=== PATIENT | male | born 1980 | race Caucasian/White ===

== ENCOUNTER 2018-06-26 06:01 | Emergency (ER) | payer OTHER ==
[2018-06-26 06:14] VITALS: BP 143/98; PULSE 93; TEMP 97.9; BMI 21.2
[2018-06-26] MEDS ORDERED: IBUPROFEN 600 MG TABLET (FP) PO ONE (06:25)
[2018-06-26] MEDS ORDERED: KETOROLAC TROMETHAMINE 60 MG/2 ML VIAL IM ONE (06:27)
[2018-06-26] MEDS ORDERED: DEXAMETHASONE 4 MG TABLET (FP) PO ONE (06:28)
--- NOTE | 2018-06-26 06:31 | PDOC ---
Attending Attestation - Resident Resident Name: Gege Swartz - ED Attending Attestation I have performed the following: I have examined & evaluated the patient, The case was reviewed & discussed with the resident, I agree w/resident's findings & plan - HPI HPI: 06/26/18 06:28 Healthy 37-year-old male presents with progressive left-sided throat pain since yesterday. Awoke this morning with more severe pain, painful swallowing but tolerating secretions and with normal voice and no difficulty breathing. No fevers or chills. No sick contacts, no recent dental work. Also complaining of left sinus congestion with nasal discharge, no facial swelling. - Physicial Exam PE: 06/26/18 06:29 Afebrile, mild distress secondary to throat pain No facial swelling but some tenderness over the left maxillary sinus TMs clear, neck supple Some submandibular lymphadenopathy on the left, bilateral tonsillar enlargement , left worse than right. Uvula is midline with patent airway, no stridor. No focal plaques or exudates. Lungs are clear, dentition is intact - Medical Decision Making 06/26/18 06:30 37-year-old male with sinusitis and tonsillitis, no acute airway issues. NSAIDs and steroids for pain and swelling Antibiotics and ENT referral Understands return criteria
[2018-06-26] MEDS ORDERED: KETOROLAC TROMETHAMINE 60 MG/2 ML VIAL ONE (06:33)
--- NOTE | 2018-06-26 06:43 | PDOC ---
History of Present Illness - General History Source: Patient Exam Limitations: No Limitations - History of Present Illness Initial Comments: 06/26/18 06:36 Pt is a 37yo m with no significant PMH presenting to ED with complaints of throat pain that started suddenly this AM. Pt said he felt "a tickling" last night but now he has severe pain in his throat that is preventing him from swallowing. Pain radiates down the front of his neck and up to the L side of his head. He also has L sided ear pain and nasal congestion. He denies fevers, chills, SOB, cough, recent illnesses, n/v/d, sick contacts. He took Motrin 250mg but it didn't help. He is still able to swallow, it is just painful. No recent dental work. PMH: none PSH: R hand surgery Meds: none Allergies: none Social: smokes 1ppd x15y, drinks 2 beers daily, daily marijuana use. <Gege Swartz - Last Filed: 06/26/18 07:03> <Monroe Ding - Last Filed: 06/26/18 07:40> - General Chief Complaint: Dysphagia Stated Complaint: DIFFICULTY SWALLOWING Time Seen by Provider: 06/26/18 06:04 Past History - Past Medical History COPD: No - Suicide/Smoking/Psychosocial Hx Smoking History: Current every day smoker Have you smoked in the past 12 months: Yes Number of Cigarettes Smoked Daily: 20 Cigars Per Day: 10 Information on smoking cessation initiated: No Hx Alcohol Use: Yes Drug/Substance Use Hx: No Substance Use Type: None <Gege Swartz - Last Filed: 06/26/18 07:03> <Monroe Ding - Last Filed: 06/26/18 07:40> - Past Medical History Allergies/Adverse Reactions: Allergies Allergy/AdvReac Type Severity Reaction Status Date / Time No Known Allergies Allergy Verified 06/26/18 06:14 Home Medications: Ambulatory Orders Albuterol Sulfate Inhaler - [Ventolin HFA Inhaler -] 2 inh PO Q4H PRN #1 inh 09/07 Azithromycin [Zithromax 250mg Tablets -] 250 mg PO DAILY 5 Days #6 tablet Benzonatate [Tessalon Pearls -] 100 mg PO TID #21 capsule 06/11/18 Amoxicillin - [Amoxicillin 500mg Capsule -] 500 mg PO DAILY 10 Days #20 capsule 06/26/18 Review of Systems - Review of Systems Constitutional: No: Chills, Fever, Loss of Appetite HEENTM: Yes: Ear Pain (L ear pain), Nose Congestion, Throat Pain, Difficulty Swallowing. No: Eye Pain, Double Vision, Ear Discharge Respiratory: No: Cough, Shortness of Breath Cardiac (ROS): No: Chest Pain, Lightheadedness, Palpitations ABD/GI: Yes: Difficulty Swallowing. No: Blood Streaked Bowels, Constipated, Diarrhea, Nausea, Vomiting, Indigestion, Abdominal cramping : No: Burning, Dysuria Musculoskeletal: Yes: Neck Pain (L sided neck pain). No: Back Pain, Muscle Pain , Muscle Weakness <Gege Swartz - Last Filed: 06/26/18 07:03> *Physical Exam - Vital Signs Last Vital Signs Temp Pulse Resp BP Pulse Ox 97.9 F 93 H 20 143/98 99 06/26/18 06:06/26/18 06:06/26/18 06:09 06/26/18 06:09 06/26/18 06:09 - Physical Exam General Appearance: Yes: Nourished, Appropriately Dressed, Mild Distress HEENT: positive: EOMI, KATE, Normal Voice, TMs Normal, Pharyngeal Erythema, Tonsillar Erythema (L tonsillar erythema and edema), Nasal Congestion, Sinus Tenderness, Other (no dental/gingival tenderness). negative: Pale Conjunctivae , Scleral Icterus (R), Scleral Icterus (L), Tonsillar Exudate, TM Bulging, TM Dull, TM Erythema Neck: positive: Tender (tender to palpation on L anterior neck), Trachea midline , Supple, Lymphadenopathy (R), Lymphadenopathy (L) (tender cervical lymphadenopathy). negative: Decreased range of motion Respiratory/Chest: positive: Lungs Clear, Normal Breath Sounds. negative: Crackles, Rales, Rhonchi, Stridor, Wheezing Cardiovascular: positive: Regular Rhythm, Regular Rate, S1, S2. negative: Edema , JVD, Murmur Vascular Pulses: Carotid (R): 2+, Carotid (L): 2+, Dorsalis-Pedis (R): 2+, Doralis-Pedis (L): 2+ Gastrointestinal/Abdominal: positive: Normal Bowel Sounds, Soft. negative: Distended, Guarding, Rebound, Tenderness Musculoskeletal: negative: CVA Tenderness Extremity: positive: Normal Capillary Refill Integumentary: positive: Normal Color, Dry, Warm Neurologic: positive: technical service rep II-XII NML intact, Fully Oriented, Alert, Normal Mood/ Affect, Normal Response, Motor Strength 5/5 <Gege Swartz - Last Filed: 06/26/18 07:03> - Vital Signs Last Vital Signs Temp Pulse Resp BP Pulse Ox 97.9 F 93 H 20 143/98 99 06/26/18 06:09 06/26/18 06:09 06/26/18 06:09 06/26/18 06:09 06/26/18 06:09 <Monroe Ding - Last Filed: 06/26/18 07:40> ED Treatment Course - Medications Given in the ED: ED Medications Discontinued Medications Generic Name Dose Route Start Last Admin Trade Name Freq PRN Reason Stop Dose Admin Ibuprofen 600 mg 06/26/18 06:25 06/26/18 06:30 Motrin - PO 06/26/18 06:26 Not Given ONCE ONE <Gege Swartz - Last Filed: 06/26/18 07:03> - ADDITIONAL ORDERS Additional order review: 06/26/18 06:05 Group A Strep Rapid Antigen - Final Throat - Medications Given in the ED: ED Medications Discontinued Medications Generic Name Dose Route Start Last Admin Trade Name Freq PRN Reason Stop Dose Admin Dexamethasone 10 mg 06/26/18 06:28 06/26/18 06:28 Decadron - PO 06/26/18 06:29 10 mg NOW ONE Administration Ibuprofen 600 mg 06/26/18 06:25 06/26/18 06:30 Motrin - PO 06/26/18 06:26 Not Given ONCE ONE Ketorolac Tromethamine 60 mg 06/26/18 06:27 06/26/18 06:30 Toradol Injection - IM 06/26/18 06:28 60 mg ONCE ONE Administration <Monroe Ding - Last Filed: 06/26/18 07:40> Medical Decision Making - Medical Decision Making 06/26/18 06:47 Pt is a 37yo m with no significant PMH presenting to ED with complaints of throat pain that started suddenly this AM. afebrile, hemodynamically stable, saturating well on RA. No excessive drooling, no muffled voice. PE revealed L tonsillar erythema and edema. tender cervical lymphadenopathy and no cough. Will send rapid strep. Low suspicion for trevor angina, peritonsillar abscess, retropharyngeal abscess. -Will not collect CBC, CMP at this time. I tried to cancel but system would not allow me to. -Will give Toradol for pain and decadron for swelling. -Will reevaluate. 06/26/18 06:56 Negative for strep. Will reevaluate. <Gege Swartz - Last Filed: 06/26/18 07:03> *DC/Admit/Observation/Transfer - Discharge Dispostion Decision to Admit order: No <Gege Swartz - Last Filed: 06/26/18 07:03> - Discharge Dispostion Decision to Admit order: No <Monroe Ding - Last Filed: 06/26/18 07:40> Diagnosis at time of Disposition: Throat pain - Discharge Dispostion Disposition: HOME Condition at time of disposition: Improved - Prescriptions Prescriptions: Amoxicillin - [Amoxicillin 500mg Capsule -] 500 mg PO DAILY 10 Days #20 capsule - Referrals Referrals: Geovani Carmen MD [Staff Physician] - [facility] [Other Staff,non-medical] - - Patient Instructions Printed Discharge Instructions: Sore Throat Additional Instructions: You were seen here today because of a sore throat. The rapid strep results were negative Please follow up with the [facility] recommended. Prescriptions for an antibiotic were sent to [facility]. You will be taking 2 capsules of amoxicillin once a day for 10 days. You can take Alieve over the counter 2 times a day for 5 days. Please see ENT doctor Dr. Carmen . Please come back to the ED if: pain worsens, you cannot swallow, it is hard for you to breathe, you are unable to lie flat without pain or because it is difficult to breathe while laying flat, you develop fever or if any new concerning symptom develops. Thank you - Post Discharge Activity Forms/Work/School Notes: Back to Work
== END 2018-06-26 07:45 | disposition home or self-care (01) ==
LOC: JER 06:01
PROC: 3E0233Z Introduction of Anti-inflammatory into Muscle, Percutaneous Approach (ICD-10-PCS; principal; 2018-06-26)
DX: J03.90 Acute tonsillitis, unspecified (principal); J01.90 Acute sinusitis, unspecified
CPT/HCPCS: 87070; 87430; 99282-25